=== PATIENT | male | born 1975 | race Two or more races ===

== ENCOUNTER 2025-03-13 12:05 | Emergency (ER) | payer OTHER ==
[~2025-03-13] VITALS: Ht 185.4 cm; Wt 150.2 kg
[2025-03-13 12:20] VITALS: TEMP 98.1
--- NOTE | 2025-03-13 13:38 | DVH ---
EXAM: XY L FOOT 3 VIEW XRAY HISTORY: r/o fracture COMPARISON: None TECHNIQUE: Three views of the left foot were performed. FINDINGS: There are mildly displaced fractures of the 4th and 5th toe distal phalanges, and possibly also 3rd t oe distal phalanx. There may be an old healed stress fracture of the 3rd metatarsal proximal metaphys is. Plantar calcaneal bone spur, Achilles insertion enthesophyte, os trigonum, os peroneum, an access ory navicular bone are incidentally noted. 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 IMPRESSION: Mildly displaced fractures of the distal phalanges of the 4th and 5th toes, possibly also distal phal anx of the 3rd toe. Correlate with focal tenderness.
--- NOTE | 2025-03-13 13:59 | ED.PDOC ---
History of Present Illness HPI Comments 49 year old male presents to the ED for the c/c of 04/16 Left Foot pain from a work related injury. Pt states that he was working for [employer] when a 35lb concrete block fell onto his foot. Pt notes of no alleviating factors but a worsening factor of walking at this point in time. No other associated modifiers or symptoms at this time. Pain rated moderate. Denies numbness/tingling of the affected foot. Chief Complaint: Lower Extremity Time Seen by MD: 13:50 Reviewed Notes: Nurses Notes, Medications, Allergies Allergies: Coded Allergies: NO KNOWN ALLERGIES (Unverified , 03/13/25) Home Meds Active Scripts Ibuprofen (Ibuprofen) 600 Mg Tab, 1 TAB PO TID for 10 Days, #30 TAB 0 Refills Prov:MRAVTING NP 03/13/25 Information Source: Patient Mode of Arrival: Ambulatory Severity: Mild Timing: Days Duration: Since onset, Days Prehospital treatment: None Past Medical History PAST MEDICAL HISTORY: Denies Surgical History: Unknown Family History Family History: Unknown Social History Smoker: Cigarettes Alcohol: Occasionally Drugs: Denies Drug Use Lives In: Home Constitutional: denies: chills, diaphoresis, fatigue, fever, malaise, sweats, weakness, others EENTM: denies: blurred vision, double vision, ear bleeding, ear discharge, ear drainage, ear pain, ear ringing, eye pain, eye redness, hearing loss, mouth pain, mouth swelling, nasal discharge, nose bleeding, nose congestion, nose pain, photophobia, tearing, throat pain, throat swelling, voice changes, others Respiratory: denies: cough, hemoptysis, orthopnea, SOB at rest, shortness of breath, SOB with excertion, stridor, wheezing, others Cardiovascular: denies: chest pain, dizzy spells, diaphoresis, Dyspnea on exertion, edema, irregular heart beat, left arm pain, lightheadedness, palpitations, PND, syncope, others Gastrointestinal: denies: abdomen distended, abdominal pain, blood streaked bowels, constipated, diarrhea, dysphagia, difficulty swallowing, hematemesis, melena, nausea, poor appetite, poor fluid intake, rectal bleeding, rectal pain, vomiting, others Genitourinary: denies: burning, dysuria, flank pain, frequency, hematuria, incontinence, penile discharge, penile sore, pain, testicle pain, testicle swelling, urgency, others Neurological: denies: dizziness, fainting, headache, left sided numbness, left sided weakness, numbness, paresthesia, pre-existing deficit, right sided numbness, right sided weakness, seizure, speech problems, tingling, tremors, weakness, others Musculoskeletal: reports: others (Left foot pain); denies: back pain, gout, joint pain, joint swelling, muscle pain, muscle stiffness, neck pain Integumetry: denies: bruises, change in color, change in hair/nails, dryness, laceration, lesions, lumps, rash, wounds, others Allergic/Immunocompromised: denies: Difficulty Healing, Frequent Infections, Hives, Itching, others Hematologic/Lymphatic: denies: anemia, blood clots, easy bleeding, easy bruising, swollen glands, others Endocrine: denies: excessive hunger, excessive sweating, excessive thirst, excessive urination, flushing, intolerance to cold, intolerance to heat, unexplained weight gain, unexplained weight loss, others Psychiatric: denies: anxiety, bipolar disorder, depression, hopeless, panic disorder, schizophrenia, sleepless, suicidal, others All Other Systems: Reviewed and Negative Physical Exam General Appearance: Mild Distress, Normal HEENT: Normal ENT Inspection, Pharynx Normal, TMs Normal Neck: Full Range of Motion, Non-Tender, Normal, Normal Inspection Respiratory: Chest Non-Tender, Lungs Clear, No Accessory Muscle Use, No Respiratory Distress, Normal Breath Sounds Cardiovascular: No Edema, No JVD, No Murmur, No Gallop, Normal Peripheral Pulses, Regular Rate/Rhythm Breast Exam: Deferred Gastrointestinal: No Organomegaly, Non Tender, No Pulsatile Mass, Normal Bowel Sounds, Soft Genitalia: Deferred Pelvic: Deferred Rectal: Deferred Extremities: Inflammation, Normal capillary refill, Normal range of motion, No pedal edema, Swelling, Tender, Other (No gross abnormality, no ecymosis, full passive and active ROM, Nurovascualar sensation intact, DP 2+) Musculoskeletal : Apperance: Normal Neurologic: Alert, No Motor Deficits, Normal Affect, Normal Mood, No Sensory Deficits Cerebellar Function: Normal Reflexes: Normal Skin: Dry, Normal Color, Warm Lymphatic: No Adenopathy Was a procedure done? Was a procedure done?: No Differential Dx Considerations may include: Sprain fracture dislocation X-Ray, Labs, Meds, VS Vital Signs Date Time Temp Pulse Resp B/P (MAP) Pulse Ox O2 Delivery O2 Flow Rate FiO2 03/13/25 15:59 81 18 95 Room Air 03/13/25 15:59 81 18 139/71 (93) 95 03/13/25 12:20 98.1 81 20 129/66 (87) 96 98.1 PATIENT: ABDOULAYE HAWTHORNE NUNOACCT: [id number]: [id number] : 1975 LOC: ER ROOM / BED: / AGE / SEX: 49 / M ADM STATUS: REG ER SERVICE 1304 ORDERING PHYSICIAN: TING FAIR NP PROCEDURE(s): LFOOT - L FOOT 3 VIEW XRAY REASON: r/o fracture ORDER NUMBER(s): [id number], ACCESSION NUMBER(s): [id number] EXAM: XY L FOOT 3 VIEW XRAY HISTORY: r/o fracture COMPARISON: None TECHNIQUE: Three views of the left foot were performed. FINDINGS: There are mildly displaced fractures of the 4th and 5th toe distal phalanges, and possibly also 3rd toe distal phalanx. There may be an old healed stress fracture of the 3rd metatarsal proximal metaphysis. Plantar calcaneal bone spur, Achilles insertion enthesophyte, os trigonum, os peroneum, an accessory navicular bone are incidentally noted. 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 IMPRESSION: Mildly displaced fractures of the distal phalanges of the 4th and 5th toes, possibly also distal phalanx of the 3rd toe. Correlate with focal tenderness. ATED BY: ABDIEL HERCULES MD DICTATED DATE/TIME: 03/13/251334 SIGNED BY: ABDIEL HERCULES MD SIGNED DATE/TIME: 03/13/251334 CC: X-Ray, Labs, Meds, VS Comment 49 year old male presents to the ED for the c/c of 8/10 Left Foot pain from a work related injury. Patient arrives alert and oriented, ABC's intact, afebrile, vital signs stable, saturating well in room air Left Foot X-Ray Ordered and Pending: Diagnostic imaging ordered by me and results interpreted by radiology :IMPRESSION: Mildly displaced fractures of the distal phalanges of the 4th and 5th toes, possibly also distal phalanx of the 3rd toe. Correlate with focal tenderness. No open fractures. Patient did not require IV antibiotics. Neurovascular sensation was intact. Fracture distal phalange were alexander-taped. On reevaluation, patient had symptomatic improvement. Patient is stable for discharge at this time. External notes reviewed. Test results and diagnostic imaging interpreted. All diagnostic findings, discharge care, education and instructions provided Follow-up with PCP in 2 to 3 days Patient verbalized understanding and agreed to treatment plan Vital signs stable, afebrile, no acute distress noted Patient ambulatory with strong steady gait Advised to return precautions for any new or worsening symptoms, return to ER immediately for re-evaluation Patient is aware that the purpose of this visit was for an acute medical emergency requiring emergent stabilization. Chronic conditions, including malignancies have not been ruled out. Patient is instructed to follow up with PCP as directed and discharge instructions for continued care and workup. If unable to arrange follow-up, patient is to return to the emergency department for reassessment. Patient (parent or legal guardian if applicable) was given verbal and written discharge instructions and acknowledges understanding. Additional MDM Review of External, Non-ED records: External records reviewed. Discussion with independent historian (EMS, family) history obtained from the patient/parents (if applicable) at bedside Chronic conditions affecting care: None Social determinants of health affecting care: None Time of 1ST Reevaluation: 15:20 Reevaluation 1ST: Unchanged Patient Education/Counseling: Diagnosis, Treatment Family Education/Counseling: No Family Present SEPSIS Sepsis Screen Physician Orders L Foot 3 View Xray (03/13/25 13:04) Unna Boot (03/13/25 15:38) Vital Signs Date Time Temp Pulse Resp B/P (MAP) Pulse Ox O2 Delivery O2 Flow Rate FiO2 03/13/25 15:59 81 18 95 Room Air 03/13/25 15:59 81 18 139/71 (93) 95 03/13/25 12:20 98.1 81 20 129/66 (87) 96 98.1 Departure 1 Departure Time of Disposition: 15:39 Impression: Primary Impression: Phalanges fracture, foot Qualified Codes: S92.535A - Nondisplaced fracture of distal phalanx of left lesser toe(s), initial encounter for closed fracture Disposition: HOME / SELF CARE / HOMELESS Condition: Stable (a) e-Prescriptions Ibuprofen (Ibuprofen) 600 Mg Tab 1 TAB PO TID for 10 Days, #30 TAB 0 Refills Prov: TING FAIR NP 03/13/25 Critical Care Note Critical Care Time?: No Stability Stability form required: No Heart Score Heart Score: Heart Score Response (Comments) Value History N/A 0 EKG N/A 0 Age N/A 0 Risk Factors N/A 0 Troponin N/A 0 Total 0 I personally scribed for TING FAIR INSOLE BEVELER ([email or web address]) on 03/13/25 at 13:59. Electronically submitted by Abdiel Jasmine ([email or web address]). I personally scribed for TING FAIR INSOLE BEVELER ([email or web address]) on 03/13/25 at 15:30. Electronically submitted by Abdiel Jasmine ([email or web address]). TING FAIR NP Mar 13, 2025 13:59
[2025-03-13] MEDS ORDERED: IBUP-1454 PO (15:39)
[2025-03-13 15:59] VITALS: BP 139/71; PULSE 81; RESP 18; O2SAT 95
== END 2025-03-13 16:01 | disposition home or self-care (01) ==
LOC: ER 12:05
DX: S92.535A Nondisplaced fracture of distal phalanx of left lesser toe(s), initial encounter for closed fracture (principal); F17.210 Nicotine dependence, cigarettes, uncomplicated; W18.39XA Other fall on same level, initial encounter; Y93.89 Activity, other specified; Y92.89 Other specified places as the place of occurrence of the external cause; Y99.0 Civilian activity done for income or pay
CPT/HCPCS: 73630